=== PATIENT | female | born 1950 | race Caucasian/White ===

== ENCOUNTER 2018-02-05 11:32 | Day surgery (SDC) | payer MEDICARE, BC ==
[~2018-02-05 11:32] MED LIST: Acetaminophen TAB* 325 MG PO PRN; Buffered Lidocaine 0.9% SYRIN* 5 ML/SYR SYRINGE INTRADERM ONE; Midazolam* 1 MG/ML 2 ML VIAL (2 MG) ONE
[2018-02-05] MEDS ORDERED: Neomycin/Polymy/Dex OPTH.SUSP* MAXITROL 0.1% 5 ML ONE (12:31)
[2018-02-05] MEDS ORDERED: acetaZOLAMIDE TAB* 250 MG ONE (12:31)
[2018-02-05] MEDS ORDERED: Lidocaine 2% EPI 1:200000 MPF*10-20 ML VIAL ONE (12:31)
[2018-02-05] MEDS ORDERED: Cyclopentolate 1% OPTH.SOL* 2 ML BTL ONE (12:31)
[2018-02-05] MEDS ORDERED: Lidocaine 1%* 5 ML VIAL ONE (12:31)
[2018-02-05] MEDS ORDERED: Ketorolac 0.5% OPHTH (NF) 0.5 % 5 ML BTL ONE (12:31)
[2018-02-05] MEDS ORDERED: Proparacaine 0.5% OPHTH.SOL* 15 ML BTL ONE (12:31)
[2018-02-05] MEDS ORDERED: Povidone Iodine 5% OPTH* 30 ML BTL ONE (12:31)
[2018-02-05] MEDS ORDERED: Phenylephrine 2.5% OPTH.SOL* 2 ML BTL ONE (12:31)
[2018-02-05] MEDS ORDERED: Midazolam* 1 MG/ML 2 ML VIAL (2 MG) ONE (14:05)
[2018-02-05 14:28] VITALS: BP 131/71
--- NOTE | 2018-02-05 15:01 | OP ---
DATE OF OPERATION: 02/05/2018 - [facility] DATE OF : 1950. SURGEON: Toño Bejarano M.D. PREOPERATIVE DIAGNOSIS: Cataract right eye, open-angle glaucoma. POSTOPERATIVE DIAGNOSIS: Cataract right eye, open-angle glaucoma. OPERATIVE PROCEDURE: Extracapsular cataract extraction with intraocular lens implant and iStent right eye. DESCRIPTION OF PROCEDURE: The patient was brought to the operating room after being given 1/2% Alcaine with epinephrine drops in the preoperative area. The eye was prepped and draped in the usual sterile fashion. Sterile drape and eyelid speculum were placed. Again, topical 1/2% Alcaine with epinephrine was given. A paracentesis incision was made at the 9 o'clock position with the No.75 blade. Clear cornea incision 2.2 x 2.2-mm was created at the 12 o'clock position starting at the anterior limbus using the 2.2-mm keratome. The anterior chamber was irrigated with 0.4 mL of 1% non-preservative intracameral lidocaine and filled with DisCoVisc. A capsulorrhexis was completed using the cystotome and the Utrata forceps. Hydrodissection was performed with balanced salt solution. The lens nucleus was removed with the Phacoemulsification handpiece without incident. Cortex was removed with the irrigation-aspiration handpiece. The capsular bag was re-inflated using DisCoVisc and an [id number] implant was inserted with the shooter, oriented to the 85 degree meridian. Horizontal reference walker were made with the patient in a seated position in the preoperative area. This was followed by an iStent [id number] inserted its shooter into the trabecular meshwork at the 2 o'clock position. The irrigation- aspiration handpiece was used to remove all residual DisCoVisc. The eye was refilled with balanced salt solution and the wound checked and found to be watertight. Topical Maxitrol drops were given. [id number]/[facility] #: [id number] [facility]
== END 2018-02-05 14:42 | disposition home or self-care (01) ==
LOC: OREAST 11:32
PROVIDERS: ATTEND Specialist
DX: Z01.818 Encounter for other preprocedural examination (principal); H25.813 Combined forms of age-related cataract, bilateral; H40.1111 Primary open-angle glaucoma, right eye, mild stage; H93.11 Tinnitus, right ear; I65.29 Occlusion and stenosis of unspecified carotid artery; Z11.59 Encounter for screening for other viral diseases; Z23 Encounter for immunization
CPT/HCPCS: A9270-GY; C1783; J2250; V2787

== ENCOUNTER 2018-02-12 07:00 | Day surgery (SDC) | payer MEDICARE, BC ==
[~2018-02-12 07:00] MED LIST changes: -Acetaminophen TAB* 325 MG PO PRN; -Midazolam* 1 MG/ML 2 ML VIAL (2 MG) ONE
[2018-02-12] MEDS ORDERED: Midazolam* 1 MG/ML 2 ML VIAL (2 MG) ONE (08:37)
[2018-02-12] MEDS ORDERED: Lidocaine 1%* 5 ML VIAL ONE (09:25)
[2018-02-12] MEDS ORDERED: Neomycin/Polymy/Dex OPTH.SUSP* MAXITROL 0.1% 5 ML ONE (09:25)
[2018-02-12] MEDS ORDERED: Povidone Iodine 5% OPTH* 30 ML BTL ONE (09:25)
[2018-02-12] MEDS ORDERED: acetaZOLAMIDE TAB* 250 MG ONE (09:25)
[2018-02-12] MEDS ORDERED: Proparacaine 0.5% OPHTH.SOL* 15 ML BTL ONE (09:25)
[2018-02-12] MEDS ORDERED: Lidocaine 2% EPI 1:200000 MPF*10-20 ML VIAL ONE (09:25)
[2018-02-12] MEDS ORDERED: Cyclopentolate 1% OPTH.SOL* 2 ML BTL ONE (09:25)
[2018-02-12] MEDS ORDERED: Ketorolac 0.5% OPHTH (NF) 0.5 % 5 ML BTL ONE (09:25)
[2018-02-12] MEDS ORDERED: Phenylephrine 2.5% OPTH.SOL* 2 ML BTL ONE (09:25)
[2018-02-12 09:59] VITALS: BP 110/58
--- NOTE | 2018-02-12 11:05 | OP ---
DATE OF OPERATION: 02/12/2018. DATE OF : 1950. SURGEON: Toño Bejarano M.D. PREOPERATIVE DIAGNOSIS: Cataract left eye. POSTOPERATIVE DIAGNOSIS: Cataract left eye. OPERATIVE PROCEDURE: Extracapsular cataract extraction with intraocular lens implant left eye. PROCEDURE: The patient was brought to the operating room after being given 1/2% Alcaine with epineph rine drops in the preoperative area. The eye was prepped and draped in the usual sterile fashion. S terile drape and eyelid speculum were placed. Again, topical 1/2% Alcaine with epinephrine was given . A paracentesis incision was made at the 3 o'clock position with the No.75 blade. Clear cornea inc ision 2.2 x 2.2-mm was created at the 6 o'clock position starting at the anterior limbus using the 2. 2-mm keratome. The anterior chamber was irrigated with 0.4 mL of 1% non-preservative intracameral li docaine and filled with DisCoVisc. A capsulorrhexis was completed using the cystotome and the Utrata forceps. Hydrodissection was performed with balanced salt solution. The lens nucleus was removed wi th the Phacoemulsification handpiece without incident. Cortex was removed with the irrigation-aspira tion handpiece. The capsular bag was re-inflated using DisCoVisc and an [id number] implant was insert ed with the shooter, oriented to the 92 degree meridian. Horizontal reference walker were made with t he patient seated in the preoperative area. The irrigation-aspiration handpiece was used to remove a ll residual DisCoVisc. The eye was refilled with balanced salt solution and the wound checked and fo und to be watertight. Topical Maxitrol drops were given. [id number]/[facility] #: [id number]
== END 2018-02-12 09:18 | disposition home or self-care (01) ==
LOC: OREAST 07:00
PROVIDERS: ATTEND Specialist
DX: H25.812 Combined forms of age-related cataract, left eye (principal); H40.1111 Primary open-angle glaucoma, right eye, mild stage; I65.23 Occlusion and stenosis of bilateral carotid arteries; R55 Syncope and collapse; I34.0 Nonrheumatic mitral (valve) insufficiency; M19.90 Unspecified osteoarthritis, unspecified site
CPT/HCPCS: A9270-GY; J2250; V2787